=== PATIENT | male | born 1940 | race African-American/Black ===

== ENCOUNTER 2024-08-09 05:46 | Inpatient (IN) | payer OTHER, MEDICARE ==
[~2024-08-09] VITALS: Ht 182.9 cm; Wt 57.4 kg
[2024-08-09] VITALS (49 sets, daily range): BP systolic 101–161; BP diastolic 50–90; PULSE 67–117; RESP 14–24; TEMP 36.55848–37.0296; O2SAT 98–100
[2024-08-09] MEDS ORDERED: AZITHROMYCIN 500 MG TABLET PO STA (05:54)
[2024-08-09] MEDS ORDERED: IPRATROPIUM BROMIDE (0.02%) 0.5MG/2.5ML NEB HHN STA (05:54)
[2024-08-09] MEDS ORDERED: ALBUTEROL (0.083%) 2.5MG/3ML NEB HHN STA (05:54)
[2024-08-09] MEDS: METHYLPREDNISOLONE SOD SUCC 125MG/2ML (ACT-O-VIAL) IV STA (06:13)
[2024-08-09] MEDS: PROPOFOL 10MG/ML 100ML 100 ML IV SCH (06:14)
[2024-08-09] MEDS: MAGNESIUM 2 G PREMIX 50 ML IV STA (06:15)
[2024-08-09] MEDS: EPINEPHRINE 1:1000 1 MG/ML AMP INJ ONE (06:15)
[2024-08-09] MEDS: EPINEPHRINE 0.1MG/ML (1:10,000) 10ML SYR ONE (06:17)
[2024-08-09] MEDS: FENTANYL 2500MCG/250ML PMX 250 ML IV ONE ×2 (06:38→06:44)
[2024-08-09 06:42] LABS: BASOPHILS % 0.5 % (0.0-2.0); EOSINOPHILS % 3.1 % (0.0-5.0); HEMATOCRIT. 34.1 % (42.0-52.0); HEMOGLOBIN. 10.4 g/dL (14.0-18.0); MEAN CORPUSCULAR HEMOGLOBIN 26.1 pg (28.0-32.0); MEAN CORPUSCULAR HGB CONC 30.4 g/dL (31.0-37.0); MEAN CORPUSCULAR VOLUME 85.6 fL (80.0-94.0); MEAN PLATELET VOLUME 9.6 fl (7.4-10.4); MONOCYTES % 5.9 % (2.0-8.0); NEUTROPHILS % 59.5 % (40.0-76.0); PLATELET 250 x1000/uL (130-400); RED BLOOD CELL COUNT 3.98 mill/uL (4.7-6.1); RED CELL DISTRIBUTION WIDTH 16.9 % (11.6-14.6); WHITE BLOOD COUNT 14.9 x1000/uL (4.5-11.0)
[2024-08-09 06:43] LABS: CHLORIDE 107 mEq/L (98-107); SODIUM 142 mEq/L (136-145)
[2024-08-09 06:44] LABS: CALCIUM 9.7 mg/dL (8.7-10.4); CARBON DIOXIDE 28 mEq/L (21-32)
[2024-08-09] MEDS: CALCIUM GLUCONATE 1GM PREMIX 50 ML IV ONE (06:45)
[2024-08-09 06:49] LABS: CREATININE 1.3 mg/dL (0.6-1.3); GLUCOSE 271 mg/dL (70-105); UREA NITROGEN BLOOD 18 mg/dL (9-23)
[2024-08-09 06:51] LABS: ALANINE AMINOTRANSFERASE 12 IU/L (10-49); ALBUMIN 4.6 g/dL (3.2-4.8); ASPARTATE AMINOTRANSFERASE 30 IU/L (<34); BILIRUBIN DIRECT 0.2 mg/dL (<=3.0); BILIRUBIN TOTAL 0.4 mg/dL (0.1-1.0); PROTEIN TOTAL 7.8 g/dL (6.0-8.3); TROPONIN I HIGH SENSITIVITY 24 ng/L (3.0-53)
[2024-08-09] MEDS: AZITHROMYCIN 500MG/250ML 250 ML IV SCH (06:55)
[2024-08-09 06:57] LABS: INR 0.9; PROTHROMBIN TIME 10.4 sec (9.6-11.0)
[2024-08-09] MEDS: HYDRALAZINE 20MG/ML VIAL IV ONE (07:13)
[2024-08-09] MEDS ORDERED: ONDANSETRON HCL 4MG/2ML INJ IV PRN (07:15)
[2024-08-09] MEDS ORDERED: CLONIDINE 0.1MG TABLET PO PRN (07:15)
[2024-08-09] MEDS ORDERED: IPRATROPIUM/ALBUTEROL 0.5-3(2.5)MG/3ML NEB HHN PRN (07:15)
[2024-08-09] MEDS ORDERED: MAGNESIUM/ALUMINUM HYDROXIDE/SIMETHICONE 30ML UDC PO PRN (07:15)
[2024-08-09] MEDS ORDERED: GUAIFENESIN 200MG/10ML SUGAR FREE UDC PO PRN (07:15)
[2024-08-09] MEDS: METHYLPREDNISOLONE SOD SUCC 40MG/ML (ACT-O-VIAL) IV SCH (07:15)
[2024-08-09] MEDS ORDERED: ACETAMINOPHEN 650MG/20.3ML UDC GT PRN ×2 (07:15)
[2024-08-09] MEDS ORDERED: DOCUSATE SODIUM 100MG CAPSULE PO PRN (07:15)
[2024-08-09] MEDS: PIPERACILLIN/TAZO 3.375G/50ML IV SCH (07:45)
[2024-08-09 07:50] LABS: CLARITY URINE CLEAR (CLEAR); COLOR URINE YELLOW (YELLOW); GLUCOSE URINE 1+ (NEGATIVE); KETONES URINE NEGATIVE (NEGATIVE); LEUKOCYTE ESTERASE URINE NEGATIVE (NEGATIVE); NITRITE URINE NEGATIVE (NEGATIVE); OCCULT BLOOD URINE TRACE (NEGATIVE); PROTEIN URINE 3+ (NEGATIVE); SPECIFIC GRAVITY URINE 1.014 (1.005-1.030)
[2024-08-09] MEDS: KCL 20MEQ/100ML PREMIX 100 ML IV SCH (08:00)
[2024-08-09] MEDS ORDERED: DEXT 5%/0.45% NACL 1000ML 1,000 ML IV SCH (08:00)
[2024-08-09] MEDS: VANCOMYCIN 1.25GM PMX (XELLIA) 250 ML IV SCH (08:00)
[2024-08-09 08:10] LABS: SQUAMOUS EPITHELIAL CELL URINE RARE /lpf (RARE/1+)
[2024-08-09 08:11] LABS: BACTERIA URINE NONE SEEN; WBC URINE 0-2 /hpf (0-2)
[2024-08-09 08:29] LABS: *AMPHETAMINES SCREEN URINE NEGATIVE (NEGATIVE)
[2024-08-09 08:30] LABS: *BARBITURATES SCREEN URINE NEGATIVE (NEGATIVE); *BENZODIAZEPINES SCREEN URINE NEGATIVE (NEGATIVE); *COCAINE SCREEN URINE NEGATIVE (NEGATIVE); METHADONE URINE SCREEN NEGATIVE (NEGATIVE); OPIATES URINE SCREEN NEGATIVE (NEGATIVE)
[2024-08-09 08:31] LABS: CANNABINOID URINE SCREEN NEGATIVE (NEGATIVE); ECSTASY MDMA SCREEN URINE NEGATIVE (NEGATIVE); PHENCYCLIDINE URINE SCREEN NEGATIVE (NEGATIVE)
[2024-08-09] MEDS: PANTOPRAZOLE SODIUM 40 MG/VIAL IV SCH (09:23)
[2024-08-09] MEDS: ENOXAPARIN 40MG/0.4ML SYR SUBCUT SCH (09:23)
[2024-08-09 09:25] LABS: THYROID STIMULATING HORMONE 9.24 uIU/mL (0.55-4.78)
[2024-08-09 09:26] LABS: T4 FREE 1.38 ng/dL (0.89-1.76)
[2024-08-09] MEDS: CALCIUM GLUCONATE 1GM PREMIX 50 ML IV SCH (09:30)
[2024-08-09] MEDS: DOXYCYCLINE 100MG/100ML 100 ML IV SCH (10:00)
[2024-08-09] MEDS ORDERED: DEXTROSE 50% WATER 50ML SYRINGE IV PRN (10:30)
[2024-08-09] MEDS: BLOOD SUGAR DIAGNOSTIC STRIP TEST SCH (10:35)
[2024-08-09 12:28] LABS: BG BASE EXCESS -4.4 mmol/L (-2.0-3.0); BG CARBOXYHEMOGLOBIN 0.9 % (0.5-1.5); BG DEOXYHEMOGLOBIN 0.7 % (0.0-5.0); BG FRACTION INSPIRED OXYGEN 50; BG HCO3 ACT 21.5 mmol/L (21.0-28.0); BG OXYGEN SATURATION 99.3 % (94.0-98.0); BG OXYHEMOGLOBIN 98.4 % (94.0-98.0); BG PCO2 43.1 mmHg (35.0-48.0); BG PH 7.316 (7.350-7.450); BG PO2 148.8 mmHg (83.0-108.0); BG SAMPLE SITE LEFT RADIAL; BG TOTAL HEMOGLOBIN 9.7 g/dL (13.5-17.5); BG TOTAL RESPIRATORY RATE 17 b/min; BG VENT MODE VENT - AC
[2024-08-09] MEDS: INSULIN LISPRO 100 UNITS/ML SUBCUT SCH (14:26)
[2024-08-09] MEDS: ACETYLCYSTEINE 200MG/ML 20% VIAL 4ML INH SCH (15:25)
[2024-08-09] MEDS: IPRATROPIUM/ALBUTEROL 0.5-3(2.5)MG/3ML NEB HHN SCH (15:26)
[2024-08-09] MEDS: PIPERACILLIN/TAZO 3.375G/50ML 50 ML IV SCH (17:28)
[2024-08-09] MEDS: ENOXAPARIN 80MG/0.8ML SYR SUBCUT SCH (17:31)
[2024-08-09] MEDS: DEXMEDETOMIDINE 400 MCG/100 ML 100 ML IV PRN (21:31)
[2024-08-10] VITALS (91 sets, daily range): BP systolic 114–157; BP diastolic 45–109; PULSE 62–98; RESP 12–22; TEMP 36.55848–36.89184; O2SAT 97–100
[2024-08-10 01:33] LABS: CREATINE KINASE MB FRACTION 4.7 ng/mL (0.5-3.6)
[2024-08-10 06:43] LABS: HEMATOCRIT. 29.4 % (42.0-52.0); HEMOGLOBIN. 9.4 g/dL (14.0-18.0); MEAN CORPUSCULAR HEMOGLOBIN 26.9 pg (28.0-32.0); MEAN CORPUSCULAR HGB CONC 32.2 g/dL (31.0-37.0); MEAN CORPUSCULAR VOLUME 83.7 fL (80.0-94.0); MEAN PLATELET VOLUME 9.7 fl (7.4-10.4); PLATELET 181 x1000/uL (130-400); RED BLOOD CELL COUNT 3.51 mill/uL (4.7-6.1); RED CELL DISTRIBUTION WIDTH 16.9 % (11.6-14.6); WHITE BLOOD COUNT 10.6 x1000/uL (4.5-11.0)
[2024-08-10 06:50] LABS: CHLORIDE 105 mEq/L (98-107); POTASSIUM 3.6 mEq/L (3.5-5.1); SODIUM 139 mEq/L (136-145)
[2024-08-10 06:51] LABS: CALCIUM 9.8 mg/dL (8.7-10.4); CARBON DIOXIDE 24 mEq/L (21-32)
[2024-08-10 06:52] LABS: DIFFERENTIAL COMMENT 1
[2024-08-10 06:56] LABS: GLUCOSE 295 mg/dL (70-105); IRON 20 ug/dL (65-175)
[2024-08-10 06:57] LABS: UREA NITROGEN BLOOD 25 mg/dL (9-23)
[2024-08-10 06:58] LABS: ALANINE AMINOTRANSFERASE 13 IU/L (10-49); ALBUMIN 3.8 g/dL (3.2-4.8); ASPARTATE AMINOTRANSFERASE 18 IU/L (<34); BILIRUBIN DIRECT 0.2 mg/dL (<=3.0); PHOSPHORUS 4.6 mg/dL (2.5-4.9)
[2024-08-10 06:59] LABS: BILIRUBIN TOTAL 0.6 mg/dL (0.1-1.0); PROTEIN TOTAL 6.6 g/dL (6.0-8.3); TOTAL IRON BINDING CAPACITY 124 ug/dl (250-425)
[2024-08-10 07:00] LABS: FERRITIN 77 ng/mL (22-322); FOLIC ACID (FOLATE) SERUM 13.39 ng/mL (>5.38); VITAMIN B12 SERUM 332 pg/mL (211-911)
[2024-08-10 07:14] LABS: CREATININE 1.7 mg/dL (0.6-1.3)
[2024-08-10] MEDS: BLOOD SUGAR DIAGNOSTIC STRIP TEST SCH (08:20)
[2024-08-10 08:51] LABS: BG BASE EXCESS -1.6 mmol/L (-2.0-3.0); BG CARBOXYHEMOGLOBIN 0.9 % (0.5-1.5); BG DEOXYHEMOGLOBIN 0.9 % (0.0-5.0); BG FRACTION INSPIRED OXYGEN 40; BG HCO3 ACT 23.4 mmol/L (21.0-28.0); BG OXYGEN SATURATION 99.1 % (94.0-98.0); BG OXYHEMOGLOBIN 98.2 % (94.0-98.0); BG PCO2 40.9 mmHg (35.0-48.0); BG PH 7.376 (7.350-7.450); BG PO2 138.4 mmHg (83.0-108.0); BG SAMPLE SITE RIGHT RADIAL; BG TOTAL HEMOGLOBIN 10.6 g/dL (13.5-17.5); BG VENT MODE VENT - AC
[2024-08-10] MEDS ORDERED: ENOXAPARIN 60MG/0.6ML SYR SUBCUT SCH (09:00)
[2024-08-10] MEDS ORDERED: DEXTROSE 50% WATER 50ML SYRINGE IV PRN (09:15)
[2024-08-10] MEDS: METHYLPREDNISOLONE SOD SUCC 125MG/2ML (ACT-O-VIAL) IV SCH (09:36)
[2024-08-10] MEDS: NITROGLYCERIN OINT 1GM/INCH UDPKT TD SCH (10:06)
[2024-08-10] MEDS: ASPIRIN 81MG TABLET NG SCH (10:06)
[2024-08-10] MEDS: DILTIAZEM HCL 60MG TABLET NG NR (10:07)
[2024-08-10 13:02] LABS: TROPONIN I HIGH SENSITIVITY 351 ng/L (3.0-53)
[2024-08-10 15:37] LABS: ANISOCYTOSIS 1+; PLATELET ESTIMATE NORMAL
[2024-08-10] MEDS: DILTIAZEM HCL 60MG TABLET NG SCH (17:35)
[2024-08-10] MEDS: INSULIN GLARGINE 100 UNITS/ML SUBCUT SCH (21:16)
[2024-08-10 22:31] LABS: TROPONIN I HIGH SENSITIVITY 306 ng/L (3.0-53)
[2024-08-11] MEDS ORDERED: ENOXAPARIN 60MG/0.6ML SYR SUBCUT SCH (09:00)
== END 2024-08-10 22:50 | disposition short-term general hospital (02) | DRG 871 ==
LOC: ER 05:46 → CVICU 06:16
PROVIDERS: ADMIT Internal Medicine; ATTEND Internal Medicine
PROC: 5A09357 Assistance with Respiratory Ventilation, Less than 24 Consecutive Hours, Continuous Positive Airway Pressure (ICD-10-PCS; principal; 2024-08-09)
PROC: 0BH17EZ Insertion of Endotracheal Airway into Trachea, Via Natural or Artificial Opening (ICD-10-PCS; 2024-08-09)
PROC: 5A1945Z Respiratory Ventilation, 24-96 Consecutive Hours (ICD-10-PCS; 2024-08-09)
PROC: 02HV33Z Insertion of Infusion Device into Superior Vena Cava, Percutaneous Approach (ICD-10-PCS; 2024-08-09)
PROC: B548ZZA Ultrasonography of Superior Vena Cava, Guidance (ICD-10-PCS; 2024-08-09)
DX: A41.9 Sepsis, unspecified organism (principal); I21.4 Non-ST elevation (NSTEMI) myocardial infarction; J96.21 Acute and chronic respiratory failure with hypoxia; J69.0 Pneumonitis due to inhalation of food and vomit; J44.1 Chronic obstructive pulmonary disease with (acute) exacerbation; Z20.822 Contact with and (suspected) exposure to COVID-19; D50.9 Iron deficiency anemia, unspecified; R65.20 Severe sepsis without septic shock; R61 Generalized hyperhidrosis; E11.319 Type 2 diabetes mellitus with unspecified diabetic retinopathy without macular edema; D63.8 Anemia in other chronic diseases classified elsewhere; F03.90 Unspecified dementia, unspecified severity, without behavioral disturbance, psychotic disturbance, mood disturbance, and anxiety; E03.8 Other specified hypothyroidism; E78.5 Hyperlipidemia, unspecified; E87.6 Hypokalemia; I10 Essential (primary) hypertension; I69.30 Unspecified sequelae of cerebral infarction; Z79.84 Long term (current) use of oral hypoglycemic drugs; Z79.4 Long term (current) use of insulin; Z79.899 Other long term (current) drug therapy
CPT/HCPCS: 31500; 36415; 36600; 71045; 80048; 80061; 80076; 80305; 81003; 82375; 82550; 82553; 82607; 82728; 82746; 82805; 82962; 83036; 83540; 83550; 83605; 83735; 83880; 84100; 84145; 84439; 84443; 84484; 85025; 85379; 87070; 87426; 93005; 93306; 93970; 94003; 94640; 99291; J0360; J0456; J0610; J1650; J1815; J2470; J2543; J2704; J2919; J2920; J3010; J3370; J3475; J3480; J3490; J7608; Q9957